=== PATIENT | female | born 1950 | race Caucasian/White ===

== ENCOUNTER 2019-06-18 10:57 | Emergency (ER) | payer OTHER | END 2019-06-18 15:14 | disposition home or self-care (01) | LOC: FER 10:57 ==

== ENCOUNTER 2021-03-08 13:51 | Emergency (ER) | payer OTHER ==
[2021-03-08] MEDS ORDERED: KETOROLAC TROMETHAMINE 30 MG/1 ML VIAL IVPUSH ONE (14:15)
[2021-03-08 14:23] VITALS: BP 147/110; PULSE 85; TEMP 99.3; BMI 25.0
[2021-03-08] MEDS ORDERED: KETOROLAC TROMETHAMINE 15 MG/ML VIAL ONE (14:48)
[2021-03-08 15:00] LABS: CALCIUM OXALATE CRYSTALS FEW /hpf (NONE SEEN); EPITHELIAL CELLS FEW /hpf
[2021-03-08 15:13] LABS: BASO % 0.6 % (0-2.0); MCH 30.4 pg (25.7-33.7); MEAN PLT VOLUME 7.8 fl (7.5-11.1); WHITE BLOOD COUNT 5.3 K/mm3 (4.0-10.8)
[2021-03-08 15:17] LABS: EOS % 1.1 % (0-4.5); HEMATOCRIT 36.5 % (32.4-45.2); HEMOGLOBIN 12.1 GM/dl (10.7-15.3); LYMPH % 10.6 % (8-40); MCHC 33.3 g/dl (32.0-36.0); MEAN CELL VOLUME 91.5 fl (80-96); MONO % 8.9 % (3.8-10.2); NEUT % 78.8 % (42.8-82.8); PLATELET COUNT 234 K/MM3 (134-434); RBC 3.99 M/mm3 (3.60-5.2); RDW 13.9 % (11.6-15.6)
[2021-03-08 15:27] LABS: ALBUMIN 3.9 g/dl (3.4-5.0); BILIRUBIN,TOTAL 0.3 mg/dl (0.2-1); CALCIUM 8.6 mg/dl (8.5-10); CREATININE 0.6 mg/dl (0.55-1.3); TOT PROT 6.6 g/dl (6.4-8.2)
[2021-03-08 15:42] LABS: INR 0.97 (0.83-1.09); PROTHROMBIN TIME (PATIENT) 11.7 SEC (9.7-13.0)
[2021-03-08 15:45] LABS: ACTIVATED PTT 29.9 SECONDS (25.2-36.5)
[2021-03-08] MEDS ORDERED: morphine CARPU-JECT 2 MG/1 ML DISP.SYRIN IVPUSH ONE (16:09)
[2021-03-08] MEDS ORDERED: morphine SULFATE 4 MG/ML VIAL ONE (16:13)
== END 2021-03-08 17:03 | disposition home or self-care (01) ==
LOC: FER 13:51
PROC: 3E033GC Introduction of Other Therapeutic Substance into Peripheral Vein, Percutaneous Approach (ICD-10-PCS; principal; 2021-03-08)
DX: R10.11 Right upper quadrant pain (principal); K59.00 Constipation, unspecified
CPT/HCPCS: 36415; 71045-TC-FY; 74176-TC; 76705-TC; 80053; 81003; 81015; 83690; 85025; 85610; 85730; 87086; 87186; 99285-25

== ENCOUNTER 2021-05-20 15:15 | Emergency (ER) | payer OTHER ==
[2021-05-21 15:08] LABS: SARS-CoV-2 NAA Not Detected (Not Detected)
== END 2021-05-20 16:23 | disposition home or self-care (01) ==
LOC: JVIRT 15:15
DX: Z11.52 Encounter for screening for COVID-19 (principal)
CPT/HCPCS: C9803; Q3014-GT; U0003; U0005

== ENCOUNTER 2023-07-06 10:55 | Inpatient (IN) | payer OTHER ==
[2023-07-06 11:15] VITALS: BMI 23.8
[2023-07-06] MEDS ORDERED: ACETAMINOPHEN 1000 MG/100 ML BAG IVPB ONE (11:26)
[2023-07-06] MEDS ORDERED: ONDANSETRON 4 MG/2 ML VIAL IVPUSH ONE ×2 (11:26→16:15)
[2023-07-06] MEDS ORDERED: ONDANSETRON 4 MG/2 ML VIAL ONE ×2 (11:34→16:16)
[2023-07-06] MEDS ORDERED: ACETAMINOPHEN INJECTION 100 ML IVPB ONE (11:35)
[2023-07-06 12:49] LABS: INR 1.03 (0.83-1.09)
[2023-07-06 12:51] LABS: ACTIVATED PTT 30.6 SECONDS (25.2-36.5)
[2023-07-06 12:57] LABS: HEMATOCRIT 35.4 % (32.4-45.2); HEMOGLOBIN 11.6 G/dL (10.7-15.3); MCH 30.2 pg (25.7-33.7); MCHC 32.7 g/dl (32.0-36.0); MEAN CELL VOLUME 92.2 fl (80-96); MEAN PLT VOLUME 7.3 fl (7.5-11.1); PLATELET COUNT 242.7 10^3/uL (134-434); RBC 3.84 10^6/uL (3.60-5.2); WHITE BLOOD COUNT 6.1 10^3/uL (4.0-10.8)
[2023-07-06 13:18] LABS: ALBUMIN 3.8 g/dl (3.4-5.0); BILIRUBIN,TOTAL 0.3 mg/dl (0.2-1); BLOOD UREA NITROGEN 6.8 mg/dl (7-18); CALCIUM 8.3 mg/dl (8.5-10.1); CREATININE 0.4 mg/dl (0.6-1.3); POTASSIUM 3.6 mmol/L (3.5-5.1); SGOT/AST 13.3 U/L (15-37); SGPT/ALT 9.8 U/L (7-52); TOT PROT 5.8 g/dl (6.4-8.2)
[2023-07-06 13:45] LABS: PLATELET ESTIMATE ADEQUATE
[2023-07-06 13:51] LABS: EPITHELIAL CELLS RARE /hpf
[2023-07-06] MEDS ORDERED: VANCOMYCIN 1,000 MG in DEXTROSE 5%-WATER - 250 ML IVPB ONE (15:05)
[2023-07-06] MEDS ORDERED: PIPERACILLIN/TAZOB 4.5 GM 4.5 GM in DEXTROSE 5%-WATER 100 ML IVPB ONE (15:05)
[2023-07-06] MEDS ORDERED: AZITHROMYCIN IVPB 250 MG in DEXTROSE 5%-WATER - 250 ML IVPB ONE (15:06)
[2023-07-06] MEDS ORDERED: oxyCODONE HCL 5 MG TABLET PO ONE ×3 (15:24→23:57)
[2023-07-06] MEDS ORDERED: ONDANSETRON 4 MG/2 ML VIAL IVPUSH PRN (15:44)
[2023-07-06] MEDS ORDERED: AZITHROMYCIN 500 MG VIAL IVPB ONE (16:05)
[2023-07-06] MEDS ORDERED: oxyCODONE HCL 5 MG TABLET ONE (16:12)
[2023-07-06] MEDS ORDERED: morphine CARPU-JECT 4 MG/1 ML DISP.SYRIN IVPUSH ONE (16:23)
[2023-07-06] MEDS ORDERED: PIPERACILLIN/TAZOBACTAM 4.5 GM VIAL IVPB ONE (16:35)
[2023-07-06] MEDS ORDERED: morphine SULFATE 4 MG/ML VIAL ONE (16:36)
[2023-07-06] MEDS ORDERED: DEXTROSE 5%-WATER 100 ML IVPB ONE (18:59)
[2023-07-06] MEDS ORDERED: VANCOMYCIN/WATER FOR INJ (PEG) 1,000 MG/200 ML BAG IVPB ONE (19:00)
[2023-07-06] MEDS: HEPARIN NA (PORCINE) 5,000 UNITS/ML 1ML VIAL SQ SCH (21:26)
[2023-07-06] MEDS ORDERED: ZOLPIDEM TARTRATE 5 MG TABLET PO ONE (21:29)
[2023-07-07] MEDS: HEPARIN NA (PORCINE) 5,000 UNITS/ML 1ML VIAL SQ SCH ×3 (05:36→21:35)
[2023-07-07] MEDS ORDERED: AZITHROMYCIN IVPB 500 MG/250 ML BAG IVPB SCH (10:00)
[2023-07-07] MEDS ORDERED: ALBUTEROL SO4 HFA INHALER IH PRN (11:28)
[2023-07-07] MEDS ORDERED: ALPRAZolam 0.25 MG TABLET PO PRN (11:29)
[2023-07-07] MEDS ORDERED: DULoxetine HCL 20 MG CAPSULE.DR PO SCH (11:30)
[2023-07-07] MEDS ORDERED: PANTOPRAZOLE 40 MG TABLET PO SCH (11:30)
[2023-07-07] MEDS ORDERED: HYDROXYCHLOROQUINE SO4 200 MG TABLET (FP) PO SCH (11:30)
[2023-07-07] MEDS ORDERED: morphine SO4 SUSTAINED ACTING 15 MG TABLET.SA PO PRN (11:32)
[2023-07-07] MEDS: POLYETHYLENE GLYCOL (HEALTHYLAX) 3350 17 GM PACKET PO SCH ×2 (12:23→21:35)
[2023-07-07] MEDS: CEFTRIAXONE 1 GM in DEXTROSE 5%-WATER - 50 ML IVPB SCH (12:23)
[2023-07-07] MEDS: PANTOPRAZOLE SODIUM 40 MG VIAL IVPUSH SCH (13:12)
[2023-07-07] MEDS: DOXYCYCLINE INJECTION 100 MG in DEXTROSE 5%-WATER 100 ML IVPB SCH (21:36)
[2023-07-08] MEDS: ZOLPIDEM TARTRATE 5 MG TABLET PO PRN (00:48)
[2023-07-08] MEDS: LEVOTHYROXINE NA 25 MCG TABLET (FP) PO SCH (06:58)
[2023-07-08] MEDS: HEPARIN NA (PORCINE) 5,000 UNITS/ML 1ML VIAL SQ SCH ×3 (06:58→21:05)
[2023-07-08 09:00] LABS: ALBUMIN 3.9 g/dl (3.4-5.0); BILIRUBIN,TOTAL 0.3 mg/dl (0.2-1); BLOOD UREA NITROGEN 6.6 mg/dl (7-18); CALCIUM 8.6 mg/dl (8.5-10.1); CREATININE 0.6 mg/dl (0.6-1.3); POTASSIUM 3.6 mmol/L (3.5-5.1); SGOT/AST 12.1 U/L (15-37); SGPT/ALT 10.1 U/L (7-52); TOT PROT 6.2 g/dl (6.4-8.2)
[2023-07-08] MEDS: DOXYCYCLINE INJECTION 100 MG in DEXTROSE 5%-WATER 100 ML IVPB SCH ×2 (09:35→21:06)
[2023-07-08] MEDS: CEFTRIAXONE 1 GM in DEXTROSE 5%-WATER - 50 ML IVPB SCH (09:35)
[2023-07-08] MEDS ORDERED: METOCLOPRAMIDE HCL INJECTION 10 MG/2 ML VIAL IVPUSH PRN (09:35)
[2023-07-08] MEDS: PANTOPRAZOLE SODIUM 40 MG VIAL IVPUSH SCH (09:36)
[2023-07-08] MEDS: POLYETHYLENE GLYCOL (HEALTHYLAX) 3350 17 GM PACKET PO SCH ×3 (10:28→21:05)
[2023-07-08 10:52] LABS: BASO % 0.1 % (0-2.0); HEMATOCRIT 37.5 % (32.4-45.2); HEMOGLOBIN 12.9 GM/dL (10.7-15.3); LYMPH % 21.5 % (8-40); MCH 30.6 pg (25.7-33.7); MCHC 34.4 g/dl (32.0-36.0); MEAN CELL VOLUME 88.9 fl (80-96); MEAN PLT VOLUME 7.4 fl (7.5-11.1); MONO % 6.8 % (3.8-10.2); NEUT % 68.6 % (42.8-82.8); PLATELET COUNT 334 10^3/uL (134-434); RBC 4.21 M/mm3 (3.60-5.2); RDW 15.4 % (11.6-15.6); WHITE BLOOD COUNT 6.6 K/mm3 (4.0-10.0)
[2023-07-09] MEDS: ZOLPIDEM TARTRATE 5 MG TABLET PO PRN (01:09)
[2023-07-09] MEDS: HEPARIN NA (PORCINE) 5,000 UNITS/ML 1ML VIAL SQ SCH (06:44)
[2023-07-09] MEDS: LEVOTHYROXINE NA 25 MCG TABLET (FP) PO SCH (06:45)
[2023-07-09] MEDS: POLYETHYLENE GLYCOL (HEALTHYLAX) 3350 17 GM PACKET PO SCH (09:30)
[2023-07-09] MEDS: PANTOPRAZOLE SODIUM 40 MG VIAL IVPUSH SCH (09:31)
[2023-07-09] MEDS: CEFTRIAXONE 1 GM in DEXTROSE 5%-WATER - 50 ML IVPB SCH (09:32)
[2023-07-09] MEDS: DOXYCYCLINE INJECTION 100 MG in DEXTROSE 5%-WATER 100 ML IVPB SCH (09:33)
[2023-07-09 11:45] VITALS: BP 141/88; PULSE 111; RESP 18; TEMP 98
== END 2023-07-09 11:49 | disposition home or self-care (01) | DRG 194 ==
LOC: FER 10:55 → FM/S 15:06
PROVIDERS: ADMIT Internal Medicine
DX: J18.9 Pneumonia, unspecified organism (principal); F11.20 Opioid dependence, uncomplicated; F41.9 Anxiety disorder, unspecified; E03.9 Hypothyroidism, unspecified; G89.4 Chronic pain syndrome; M06.9 Rheumatoid arthritis, unspecified
CPT/HCPCS: 0241U-QW; 36415; 71046-TC-FY; 71250-TC; 74176-TC; 80053; 81003; 81015; 84484; 85025; 85027; 85610; 85730; 87040; 87086; 87186; 93005; 99285-25; J1644